=== PATIENT | female | born 2005 | race Two or more races ===

== ENCOUNTER 2024-09-13 08:51 | Outpatient (CLI) | payer MEDICAID, SELFPAY ==
[2024-09-13 09:04] VITALS: BP 109/64; PULSE 106
[2024-09-13 09:06] VITALS: TEMP 36.8; BMI 29.0
--- NOTE | 2024-09-13 09:08 | XR_ITS ---
Examination: Biophysical profile, ultrasound Date and time of exam: September 13, 2024 0953 hours INDICATIONS: Post dates Technique: Multiple transabdominal sonographic images of the pelvis abdomen obtained. Attention is directed to the breathing movement, gross body movement, amniotic fluid volume and tone. Findings: Amniotic fluid index 15.4 cm Total biophysical profile is 8 of 8. breathing movement is 2. Gross body movement is 2. tone is 2. Qualitative amniotic fluid volume is 2 Impression: Biophysical profile is 8 of 8.
--- NOTE | 2024-09-13 09:09 | XR_ITS ---
Examination: Complete OB ultrasound greater than 14 weeks Date and time of exam: September 13, 2024 1007 hours INDICATIONS: Post dates Findings: Viable intrauterine single fetus with single amniotic sac presentation cephalic Cardiac motion 140 BPM Placenta anterior grade 3 Clinical: Insertion seen Amniotic fluid index 15 cm Cervix 5.1 cm Ovaries obscured by bowel gas. Composite estimated gestational age based on BPD, head circumference, abdominal circumference, femur length is 39 weeks 4 days Estimated weight 3864 g. Survey of intracranial anatomy, spinal anatomy, abdominal anatomy, four-chamber heart performed with no abnormalities identified. Impression: Viable intrauterine gestation cephalic presentation Estimated gestational age 39 weeks 4 days.
[2024-09-13 09:50] VITALS: BP 109/64; PULSE 106; RESP 18; RESP 98; TEMP 36.8
== END 2024-09-13 11:25 | disposition home or self-care (01) ==
LOC: S4S1 08:53 → S4SX 08:54
PROVIDERS: Referring Provider Obstetrics & Gynecology; Visit Provider Obstetrics & Gynecology
DX: Z34.03 Encounter for supervision of normal first pregnancy, third trimester (principal); Z36.9 Encounter for antenatal screening, unspecified; Z3A.39 39 weeks gestation of pregnancy
CPT/HCPCS: 59025; 76805; 76819

== ENCOUNTER 2024-09-16 17:13 | Inpatient (IN) | payer MEDICAID, SELFPAY ==
[2024-09-16] VITALS (22 sets, daily range): BP systolic 95–122; BP diastolic 51–72; PULSE 76–98; RESP 18; TEMP 36.5; O2SAT 96–99; BMI 29.3
[2024-09-16 18:00] LABS: Basophils % (Auto) 0 % (0-2.5); Eosinophils # (Auto) 0.1 Thou/mm3 (0.0-0.5); Eosinophils % (Auto) 0 % (0-10); Hematocrit 37.7 % (36.0-46.0); Hemoglobin 13.1 g/dL (12.0-16.0); Immature Granulocytes % (Auto) 1 % (0-0); Immature Granulocytes Auto 0.08 Thou/mm3 (0.00-0.00); Lymphocytes # (Auto) 1.6 Thou/mm3 (1.0-4.8); Lymphocytes % (Auto) 14 % (10-50); Mean Corpuscular HGB Conc 34.7 g/dl (31.0-37.0); Mean Corpuscular Hemoglobin 31.4 pg (25.0-35.0); Mean Corpuscular Volume 90 fL (80-100); Monocytes # (Auto) 0.8 Thou/mm3 (0.0-0.8); Monocytes % (Auto) 7 % (0-12); Neutrophils # (Auto) 8.7 Thou/mm3 (1.8-7.7); Neutrophils % (Auto) 78 % (37-80); Nucleated Red Blood Cell % 0 /100 WBC (0); Platelet Count 190 Thou/mm3 (140-440); RDW Standard Deviation 43.4 fL (36.4-46.3); Red Blood Count 4.17 Miln/mm3 (4.00-5.20); White Blood Count 11.2 Thou/mm3 (4.5-11.0)
--- NOTE | 2024-09-16 18:01 | XR_ITS ---
Examination: age Limited Technique: Transabdominal sonographic images pelvis Exam date and time: September [id number] hrs. Indications: Preop induction, unknown size and dates Findings: Viable intrauterine gestation cephalic presentation spine anterior Estimated weight 3319.3 g Cervix 3.1 cm Estimated age 38 weeks 0 days Impression: Viable intrauterine gestation cephalic presentation Estimated weight 3319 g
[2024-09-16 19:09] LABS: Syphilis Nonreactive (Nonreactive)
[2024-09-16] MEDS: DINOPROSTONE 10 MG VAG.SUPP VAGINAL (20:27)
[2024-09-17] VITALS (66 sets, daily range): BP systolic 111–128; BP diastolic 55–74; PULSE 71–103; RESP 18; TEMP 36.6–37.1; O2SAT 91–100
--- NOTE | 2024-09-17 08:33 | PD.LDHP ---
Documentation for date of: 09/17/24 OB Labor/Induct. HPI History of Present Illness Chief complaint: induction : 1 Para: 0 Term pregnancies: 1 pregnancies: 0 Living children: 0 History of Abortions: Spontaneous and Elective: 0 History of Vaginal deliveries: 0 History of sections: No History of : No Date of last menstrual period: 12/06/23 MILAD: 09/11/24 Gestational Age (weeks): 39 Gestational Age (days): 5 Gestational age based on last menstrual period: 40 Indication for induction: post dates History of present illness: This is a 19-year-old 1 para 0 admit to labor and delivery for induction of labor. Patient is been followed at [facility]. First visit was 8 weeks. Last period December 06, 2023. This gave due date September 11, 2024. First ultrasound was at 12 weeks. And then patient had other anatomy scans and followed by [facility]. Denies social habits. Denies surgery. Denies chronic illness. Patient is B-, antibody screen negative, RPR nonreactive, rubella immune, hepatitis B-, hep C negative, HIV negative, GC and Chlamydia were negative. Patient had negative NIPT and carrier screens. Normal 1 hour Glucola. Negative GBS. patient was given TDAP and Rhogam History of Present Dating criteria: LMP confirmed by 1st trimester US Adequate Care: Yes Ultrasounds: normal 1st trimester US Obstetrical complications: none Medical complications: none Labs Labs: Negative: Hepatitis B, HIV, Chlamydia, Gonorrhea and Group Beta Strep Review of Systems Review of Systems Systems Reviewed: All systems reviewed, normal except as documented Past Medical History Surgical History SURGICAL: Negative Section Meds Home Medications and Allergies Home Medications ?Medication ?Instructions ?Recorded ?Confirmed ?Type vits no.130-ferrous fum 1 tab PO QDAY 09/16/24 09/16/24 History 27 mg iron-folic acid 800 mcg tablet ( Vitamin) Allergies Allergy/AdvReac Type Severity Reaction Status Date / Time No Known Allergies Allergy Verified 09/16/24 17:26 OB Exam Physical Exam Vital signs: Temp Pulse Resp BP Pulse Ox 98.2 F 96 18 128/70 98 09/17/24 06:20 09/17/24 08:05 09/17/24 06:20 09/17/24 08:05 09/16/24 18:49 Narrative: Normal heart rate and rhythm. Lungs clear no wheezes. Gravid abdomen. Gynecoid pelvis. Estimated weight is 3300 g. Cervix on admission was long closed and thick. Presentation high. Vertex by sono. heart rate category 1 with accelerations and moderate variability no contractions Detailed Labor and Delivery Exam Dilation (cm): closed Effacement (%): thick Cervix position: posterior station: -4 Consistency: medium Presentation: Vertex Cervical ripeness score: 2 Membranes: intact Baseline heart rate: 135 monitor accelerations: 15x15 monitor decelerations: None terminal clerk variability: Moderate (11-25) Contraction frequency (min): none OB Results Labs 09/16/24 17:15 Labs: Short CBC 09/16/24 Range/Units 17:15 WBC 11.2 H (4.5-11.0) Thou/mm3 Hgb 13.1 (12.0-16.0) g/dL Hct 37.7 (36.0-46.0) % Plt Count 190 (140-440) Thou/mm3 Impressions Impression: induction OB Assessment & Plan Assessment and Plan (1) Normal labor and delivery: Status: Acute Additional Plan Induction method: per misoprostol protocol Plan: induction, anticipate NVD and consult MD beckman
[2024-09-17] MEDS: MISOPROSTOL 50 mCg TABLET PO ×2 (12:32→21:36)
[2024-09-18] VITALS (144 sets, daily range): BP systolic 93–127; BP diastolic 51–72; PULSE 60–112; RESP 16–22; TEMP 36.6–37; O2SAT 72–100
[2024-09-18] MEDS: fentaNYL CIT INJ 50 mCg/ML AMP 2ML 100 MCG IV ×2 (01:48→05:19)
[2024-09-18] MEDS: MISOPROSTOL 50 mCg TABLET PO (02:48)
[2024-09-18] MEDS: RINGERS LACTATED 1000 ML 1,000 ML 100 ML IV (09:33)
--- NOTE | 2024-09-18 09:51 | PD.LDPN ---
Documentation for date of: 09/18/24 OB Labor Progress Note Pain Control Pain control: tolerating well (No pain with epidural. No pressure) and epidural Pelvic Exam Dilation (cm): complete Effacement (%): 100 station: -1 Amniotic membrane status: Leaking Contractions Monitor mode: External Contraction frequency: none Contraction intensity: Strong Status status: Category l Assessment and Plan Assessment: active labor Plan OB labor note: continuous present management
[2024-09-18] MEDS: MINERAL OIL 30 ML UDC TOP (12:30)
[2024-09-18] MEDS: OXYTOCIN in NS 20 units 20 UNIT/1,000 ML BAG 125 UNIT IV (12:45)
[2024-09-18] MEDS: METHYLERGONOVINE INJ 0.2 MG/ML VIAL IM (12:50)
[2024-09-18] MEDS: BENZO/LANO/ALOE (Dermoplast) 60 GM CAN 1 SPRAY TOP (13:00)
--- NOTE | 2024-09-18 13:18 | PD.LDDELS ---
Data ([facility]) Data Hx Section: No : 1 Para: 0 Term: 0 : 0 : 0 Delivery Data ([facility]) Labor Data Stimulated/Augmented: Yes Induction: Yes Method: Cytotec ROM Date: 09/18/24 ROM Time: 07:10 Rupture Type: SROM Amniotic Fluid: Clear Delivery Data EDC: 09/11/24 Labor Onset Stage 1 Date: 09/18/24 Labor Onset Stage 1 Time: 07:10 Labor Onset Stage 2 Date: 09/18/24 Labor Onset Stage 2 Time: 12:30 Delivery Date: 09/18/24 Delivery Time: 12:40 Gestational age (weeks): 41 Gestational age (days): 0 Placenta Delivery Date: 09/18/24 Placenta Delivery Time: 12:45 Delivered by: Miranda Bean Delivery nurse: Abigail Givens Strategic Planning Manager at delivery: No Support person(s) at delivery: FOB Other staff at delivery: Nursery Nurse Other staff at delivery: ObEstephanie aponte Delivery Method Delivery: Vaginal Delivery Type: Spontaneous Presentation: Vertex Position: OA Anesthesia Type Primary Anesthesia: Epidural Secondary Anesthesia: None Placenta Placenta Delivery: Spontaneous Placenta Cultures Obtained: No Placenta Sent for Examination: No Episiotomy Episiotomy: None Lacerations #1: Perineal: 2nd degree Perineal repair Sutures used for repair: 3.0 Chromic and 4.0 Chromic EBL Estimated blood loss (ml): 300 Umbilical Cord Umbilical Vessels: 3 Nuchal Cord: x1 Tightly Body Cord: None Additional Procedures The patient is a 19-year-old G1, P0 induced for postdates. She had Cervidil and Cytotec. She was signed out to me at 7:00 in the morning on 09/18/2024. Patient had been 3 cm got an epidural and by the time it was about 8:30 in the morning she was 9 cm she went on to progress to complete and pushed about an hour delivering a liveborn male at 1240 in the afternoon. The placenta was complete spontaneous grossly normal delivered approximately 5 minutes after the baby delivered a second degree perineal laceration was repaired using 2-0 and 4-0 chromic without complications Complications Complications: none Data ([facility]) [place] Data Infant Gender: Male Weight Grams: 3610 1 Minute Total: 9 5 Minute Total: 9
[2024-09-18 19:29] LABS: Basophils # (Auto) 0.1 Thou/mm3 (0.0-0.2); Basophils % (Auto) 0 % (0-2.5); Eosinophils % (Auto) 0 % (0-10); Hematocrit 34.9 % (36.0-46.0); Hemoglobin 12.1 g/dL (12.0-16.0); Immature Granulocytes % (Auto) 1 % (0-0); Immature Granulocytes Auto 0.14 Thou/mm3 (0.00-0.00); Lymphocytes # (Auto) 1.2 Thou/mm3 (1.0-4.8); Lymphocytes % (Auto) 4 % (10-50); Mean Corpuscular HGB Conc 34.7 g/dl (31.0-37.0); Mean Corpuscular Hemoglobin 31.3 pg (25.0-35.0); Mean Corpuscular Volume 90 fL (80-100); Monocytes # (Auto) 1.2 Thou/mm3 (0.0-0.8); Monocytes % (Auto) 5 % (0-12); Neutrophils # (Auto) 23.6 Thou/mm3 (1.8-7.7); Neutrophils % (Auto) 90 % (37-80); Nucleated Red Blood Cell % 0 /100 WBC (0); Platelet Count 150 Thou/mm3 (140-440); RDW Standard Deviation 43.7 fL (36.4-46.3); Red Blood Count 3.86 Miln/mm3 (4.00-5.20)
[2024-09-18 19:50] LABS: White Blood Count 26.2 Thou/mm3 (4.5-11.0)
--- NOTE | 2024-09-18 21:07 | PC.NURSE ---
[address] Bean about Patients recent CBC results, WBC of 26.2 , current vital signs HR 106, RR 22, temp 98.1. Dr Bean gave verbal orders to administer a LR bolus 999ml/hr and a repeat CBC draw on 09/19/24 at 0600.
--- NOTE | 2024-09-18 21:21 | PC.NURSE ---
09/18/24 2000: Spoke with MD Bean and called lab/blood bank regarding pts. Rhogam status. Pt. is to receive Rhogam within 72 hours of delivery. Pt. made aware, and verbalizes understanding.
[2024-09-18] MEDS: RINGERS LACTATED 1000 ML 1,000 ML 999 ML IV (22:13)
--- NOTE | 2024-09-18 23:01 | PC.NURSE ---
2200 patients IV infiltrated prior to IV fluid administration, IV was discontinued. New right 18g IV was inserted at 2211 in the wrist. Pt tolerated well.
[2024-09-19] VITALS (7 sets, daily range): BP systolic 93–107; BP diastolic 58–70; PULSE 83–105; RESP 16–20; TEMP 36.5–36.8; O2SAT 96–98
--- NOTE | 2024-09-19 04:44 | PC.NURSE ---
The patient was having trouble getting baby to latch. I Educated pt on how to breast feed/ latch properly. Assisted pt with .
[2024-09-19 06:22] LABS: Basophils # (Auto) 0.1 Thou/mm3 (0.0-0.2); Basophils % (Auto) 0 % (0-2.5); Eosinophils # (Auto) 0.1 Thou/mm3 (0.0-0.5); Eosinophils % (Auto) 0 % (0-10); Hemoglobin 10.5 g/dL (12.0-16.0); Immature Granulocytes % (Auto) 1 % (0-0); Immature Granulocytes Auto 0.11 Thou/mm3 (0.00-0.00); Lymphocytes # (Auto) 1.6 Thou/mm3 (1.0-4.8); Lymphocytes % (Auto) 8 % (10-50); Mean Corpuscular Hemoglobin 31.9 pg (25.0-35.0); Mean Corpuscular Volume 91 fL (80-100); Monocytes # (Auto) 0.9 Thou/mm3 (0.0-0.8); Monocytes % (Auto) 4 % (0-12); Neutrophils # (Auto) 17.9 Thou/mm3 (1.8-7.7); Neutrophils % (Auto) 87 % (37-80); Nucleated Red Blood Cell % 0 /100 WBC (0); Platelet Count 130 Thou/mm3 (140-440); Red Blood Count 3.29 Miln/mm3 (4.00-5.20)
[2024-09-19 06:24] LABS: White Blood Count 20.7 Thou/mm3 (4.5-11.0)
--- NOTE | 2024-09-19 11:07 | ESDS_ITS ---
DS: Providers Provider Date of admission: 09/16/24 17:13 Primary care physician: Matt Parrish MD Admitting Provider: Celine Quesada CNM Attending Provider on Admission: Miranda Bean MD Consults: 09/18/24 13:24 Referral Routine Comment: Attending Provider on DC: Miranda Bean MD Discharging Provider: Miranda Bean MD Anticipated date of discharge: 09/19/24 DS: Diagnosis Discharge Diagnosis (1) Term delivered: Status: Acute Problem List Completed Was Problem List Reviewed/Reconciled?: Yes Summary/Hosp Course Brief History: This is a 19-year-old 1 para 0 admit to labor and delivery for induction of labor. Patient is been followed at [facility] care. First visit was 8 weeks. Last period December 06, 2023. This gave due date September 11, 2024. First ultrasound was at 12 weeks. And then patient had other anatomy scans and followed by M. Denies social habits. Denies surgery. Denies chronic illness. Patient is B-, antibody screen negative, RPR nonreactive, rubella immune, hepatitis B-, hep C negative, HIV negative, GC and Chlamydia were negative. Patient had negative NIPT and carrier screens. Normal 1 hour Glucola. Negative GBS. patient was given TDAP and Rhogam Peripartum Data Delivery Method: Normal Vaginal Delivery Episiotomy Description: None Laceration Description: see Delivery Summary complications: none Status at Discharge Cognitive/behavioral status at discharge: Patient is doing well at discharge Functional status at discharge: independent ambulation Overall status at discharge: patient is progressing back to baseline Time Spent with Patient Time attestation: Total time spent providing and/or coordinating discharge services: Time spent: Less than 30 minutes Specific discharge activities: Patient was told to refrain from intercourse tampons and bathtubs for 6 weeks. She is to drink a lot of water take her vitamins. She is to call with fevers 100.4 degrees or higher and or heavy vaginal bleeding. Patient's was given signs and symptoms of depression. She will follow-up in clinic in 6 weeks Exam Vital Signs Temp Pulse Resp BP Pulse Ox O2 Del Method 97.9 F 104 H 17 107/67 98 Room Air 09/19/24 08:05 09/19/24 08:05 09/19/24 08:05 09/19/24 08:05 09/19/24 08:05 09/19/24 08:05 Narrative Exam Fundus firm nontender Routine Extremities Exam Comments: Mild pedal edema Discharge Plan Plan Patient Disposition: HOME (Self Care) Disposition Comment: Stable Prescriptions/Referrals Prescriptions/Med Rec: No Action Vitamin 27 mg iron- 800 mcg tablet 1 tab PO QDAY Patient Comments: TAKE ONE TABLET BY MOUTH EVERY DAY VITAMIN Referrals: Matt Parrish MD [Primary Care Provider] - Patient/Caregiver Discharge Instructions Discharge Activity: activity as tolerated Other Discharge Activity Instructions:: pelvic rest x 6 weeks Education Materials: After a Vaginal , After Delivery Concerns, Breast Care After , : Caring for Yourself, Feel Healthy After Print Language: Kosovan Activity Restrictions/Additional Instructions: Pelvic rest x 6 weeks call for heavy vaginal bleeding fevers or signs of depression follow-up in clinic in 6 weeks Stand Alone Forms: Maryjane Award Info., Patient Portal Info Letter Discharge Order Discharge Orders: Discharge (Routine); Ordered 09/19/24 Ordered By: Miranda Bean Planned Discharge Date 09/19/24
== END 2024-09-19 14:10 | disposition home or self-care (01) | DRG 560 ==
LOC: S4SX 09-18 14:17 → S4NX 09-18 15:53
PROVIDERS: Admitting Provider Advanced Practice Midwife; PCP Family Medicine; Visit Provider Obstetrics & Gynecology
DX: O48.0 Post-term pregnancy (principal); Z37.0 Single live birth; Z3A.40 40 weeks gestation of pregnancy; O70.1 Second degree perineal laceration during delivery; O69.1XX0 Labor and delivery complicated by cord around neck, with compression, not applicable or unspecified
CPT/HCPCS: 36415; 59409; 76815; 85025; 85461; 86780; 86850; 86870; 86900; 86901; 94762; J2210; J2590; J2790; J2795; J3010; J7120; A9270